=== PATIENT | female | born 1940 | race Caucasian/White ===

== ENCOUNTER 2017-05-14 15:24 | Inpatient (IN) | payer MEDICAID ==
[~2017-05-14] VITALS: Ht 157.5 cm; Wt 76.3 kg
[2017-05-14 16:30] LABS: BASOPHIL % 0.7 % (0-2); PLATELET COUNT 161 x10^3mcL (130-400)
[2017-05-14 16:38] LABS: RED CELL DISTRIBUTION WIDTH 16.9 % (11.5-14.5)
[2017-05-14 16:50] LABS: microscopic required? NO
[2017-05-14 16:51] LABS: ALKALINE PHOSPHATASE 268 U/L (46-116); ALT/SGPT 34 U/L (14-59); AMYLASE 56 U/L (25-115); AST/SGOT 88 U/L (15-37); BILIRUBIN TOTAL 3.36 mg/dL (0.20-1.00); CALCIUM 8.5 mg/dL (8.5-10.1); CARBON DIOXIDE 24.1 mmol/L (21-32); CHLORIDE SERUM 110 mmol/L (98-107); CHOLESTEROL 160 mg/dL (<200); CREATININE SERUM 1.1 mg/dL (0.6-1.0); GLUCOSE SERUM 147 mg/dL (74-106); LIPASE 305 IU/L (73-393); POTASSIUM SERUM 3.7 mmol/L (3.5-5.1); SODIUM SERUM 142 mmol/L (136-145); T4(THYROXINE) 7.4 ug/dL (4.7-13.3); TOTAL PROTEIN, SERUM 7.8 g/dL (6.4-8.2)
[2017-05-14 16:57] LABS: UA SPECIFIC GRAVITY 1.025 (1.005-1.035); urine erythrocyte NEGATIVE (NEGATIVE)
[2017-05-14 16:57] LABS: ALBUMIN 1.9 g/dL (3.4-5.0); HDL CHOLESTEROL 12 mg/dL (40-60)
[2017-05-14 17:11] LABS: AMPHETAMINE QUAL UR NONE DETECTED (NEG <=1000)
[2017-05-14] MEDS ORDERED: FUROSEMIDE40 MG PO (18:36)
[2017-05-14 18:38] VITALS: BP 134/70
[2017-05-14 19:22] LABS: CHOLESTEROL/HDL RATIO 12.2
[2017-05-14 19:27] LABS: T3 TOTAL 0.91 ng/mL
[2017-05-14 19:29] LABS: FREE T4 1.35 ng/dL (0.76-1.46); FREE THYROXINE INDEX 2.9 ug/dL (1.4-4.5); T4(THYROXINE) 8.6 ug/dL (4.7-13.3)
[2017-05-14 21:15] VITALS: BP 114/54
[2017-05-15 05:02] VITALS: BP 113/48
[2017-05-15 05:44] LABS: BASOPHIL % 0.6 % (0-2); PLATELET COUNT 145 x10^3mcL (130-400)
[2017-05-15 05:45] LABS: RED CELL DISTRIBUTION WIDTH 16.8 % (11.5-14.5)
[2017-05-15 06:10] LABS: CALCIUM 8.3 mg/dL (8.5-10.1); CARBON DIOXIDE 19.8 mmol/L (21-32); CHLORIDE SERUM 114 mmol/L (98-107); CREATININE SERUM 0.9 mg/dL (0.6-1.0); GLUCOSE SERUM 74 mg/dL (74-106); POTASSIUM SERUM 3.1 mmol/L (3.5-5.1); SODIUM SERUM 144 mmol/L (136-145)
[2017-05-15 12:32] VITALS: BP 96/53
[2017-05-15 16:37] VITALS: BP 133/101
[2017-05-15 21:59] VITALS: BP 108/45
[2017-05-16] VITALS (7 sets, daily range): BP systolic 86–127; BP diastolic 31–72
[2017-05-16 06:14] LABS: BASOPHIL % 0.6 % (0-2); PLATELET COUNT 156 x10^3mcL (130-400)
[2017-05-16 06:33] LABS: RED CELL DISTRIBUTION WIDTH 17.1 % (11.5-14.5)
[2017-05-16 06:34] LABS: CALCIUM 8.5 mg/dL (8.5-10.1); CARBON DIOXIDE 23.5 mmol/L (21-32); CHLORIDE SERUM 114 mmol/L (98-107); CREATININE SERUM 1.1 mg/dL (0.6-1.0); GLUCOSE SERUM 103 mg/dL (74-106); MAGNESIUM 1.9 mg/dL (1.8-2.4); PHOSPHOROUS 2.7 mg/dL (2.5-4.9); POTASSIUM SERUM 3.6 mmol/L (3.5-5.1); SODIUM SERUM 144 mmol/L (136-145)
[2017-05-16 19:56] LABS: APPEARANCE FLUID CLEAR; COLOR FLUID YELLOW; SOURCE FLUID ASCITES
[2017-05-16 19:57] LABS: RBC FLUID 1348 /cumm; WBC FLUID 10 /cumm
[2017-05-16 20:38] LABS: SOURCE FLUID ASCITES
[2017-05-17 05:58] VITALS: BP 97/36
[2017-05-17 06:25] VITALS: BP 98/57
[2017-05-17 06:56] LABS: BASOPHIL % 0.4 % (0-2); PLATELET COUNT 153 x10^3mcL (130-400); RED CELL DISTRIBUTION WIDTH 17.6 % (11.5-14.5)
[2017-05-17 06:58] LABS: CALCIUM 8.4 mg/dL (8.5-10.1); CARBON DIOXIDE 24.5 mmol/L (21-32); CHLORIDE SERUM 112 mmol/L (98-107); CREATININE SERUM 1.1 mg/dL (0.6-1.0); GLUCOSE SERUM 96 mg/dL (74-106); MAGNESIUM 1.9 mg/dL (1.8-2.4); PHOSPHOROUS 2.9 mg/dL (2.5-4.9); POTASSIUM SERUM 3.6 mmol/L (3.5-5.1); SODIUM SERUM 143 mmol/L (136-145)
[2017-05-17 10:00] VITALS: BP 95/32
[2017-05-17 15:49] VITALS: BP 108/36
[2017-05-17 15:55] VITALS: BP 107/45
[2017-05-17 21:40] VITALS: BP 110/47
[2017-05-18 06:07] VITALS: BP 112/46
[2017-05-18 06:29] LABS: BASOPHIL % 0.7 % (0-2); PLATELET COUNT 144 x10^3mcL (130-400)
[2017-05-18 06:36] LABS: RED CELL DISTRIBUTION WIDTH 16.7 % (11.5-14.5)
[2017-05-18 06:40] LABS: CARBON DIOXIDE 24.2 mmol/L (21-32); CHLORIDE SERUM 111 mmol/L (98-107); GLUCOSE SERUM 99 mg/dL (74-106); POTASSIUM SERUM 3.2 mmol/L (3.5-5.1); SODIUM SERUM 141 mmol/L (136-145)
[2017-05-18 09:50] VITALS: BP 118/56
[2017-05-18 14:45] VITALS: BP 114/53
[2017-05-18 16:24] VITALS: BP 120/61
[2017-05-18 21:10] VITALS: BP 113/56
[2017-05-19 04:52] VITALS: BP 100/37
[2017-05-19 04:56] VITALS: BP 113/53
[2017-05-19 04:57] VITALS: BP 118/60
[2017-05-19 06:25] LABS: CALCIUM 8.1 mg/dL (8.5-10.1); CARBON DIOXIDE 22.2 mmol/L (21-32); CHLORIDE SERUM 110 mmol/L (98-107); GLUCOSE SERUM 86 mg/dL (74-106); SODIUM SERUM 140 mmol/L (136-145)
[2017-05-19 06:43] LABS: BASOPHIL % 0.8 % (0-2); PLATELET COUNT 152 x10^3mcL (130-400)
[2017-05-19 06:56] LABS: RED CELL DISTRIBUTION WIDTH 16.9 % (11.5-14.5)
[2017-05-19 08:58] VITALS: BP 118/52
[2017-05-19] MEDS ORDERED: MECLIZINE HYD12.5 MG PO (10:53)
[2017-05-19] MEDS ORDERED: LAC30L PO (10:59)
[2017-05-19 11:37] VITALS: BP 118/52
== END 2017-05-19 12:30 | disposition home health service (06) ==
LOC: ED 15:24 → DU 17:44
PROVIDERS: Emergency Medicine; Family Medicine; Internal Medicine Gastroenterology; ADMIT Family Medicine
PROC: 0W9G3ZZ Drainage of Peritoneal Cavity, Percutaneous Approach (ICD-10-PCS; 2017-05-16)
PROC: 0DB68ZX Excision of Stomach, Via Natural or Artificial Opening Endoscopic, Diagnostic (ICD-10-PCS; principal; 2017-05-18 13:30)
DX: K74.69 Other cirrhosis of liver (principal); E43 Unspecified severe protein-calorie malnutrition; K72.90 Hepatic failure, unspecified without coma; K76.6 Portal hypertension; E87.8 Other disorders of electrolyte and fluid balance, not elsewhere classified; R18.8 Other ascites; D53.9 Nutritional anemia, unspecified; K31.89 Other diseases of stomach and duodenum; K29.40 Chronic atrophic gastritis without bleeding; K42.9 Umbilical hernia without obstruction or gangrene; I10 Essential (primary) hypertension; E78.5 Hyperlipidemia, unspecified; R74.0 Nonspecific elevation of levels of transaminase and lactic acid dehydrogenase [LDH]; E87.6 Hypokalemia; Z68.30 Body mass index [BMI] 30.0-30.9, adult; Z87.891 Personal history of nicotine dependence
CPT/HCPCS: 43235; 82962; 83880; 84439; 88344; 97110-GP; 97116-GP; 97530-GP; G0480; J1170; J1200; J1610; J1940; J2250; J2310; J3010; J3490; J7030; J8597; Q0092; Q9967

== ENCOUNTER 2017-06-13 15:40 | Inpatient (IN) | payer OTHER ==
[~2017-06-13] VITALS: Ht 157.5 cm; Wt 79.0 kg
[~2017-06-13 15:40] MED LIST: FUROSEMIDE40 MG PO; LAC30L PO; MECLIZINE HYD12.5 MG PO
[2017-06-13 16:57] LABS: BASOPHIL % 0.7 % (0-2); PLATELET COUNT 215 x10^3mcL (130-400)
[2017-06-13 16:59] LABS: RED CELL DISTRIBUTION WIDTH 16.6 % (11.5-14.5)
[2017-06-13 17:17] LABS: ALKALINE PHOSPHATASE 249 U/L (46-116); ALT/SGPT 35 U/L (14-59); AST/SGOT 78 U/L (15-37); BILIRUBIN TOTAL 3.6 mg/dL (0.20-1.00); CALCIUM 8.5 mg/dL (8.5-10.1); CREATININE SERUM 0.9 mg/dL (0.6-1.0); GLUCOSE SERUM 151 mg/dL (74-106)
[2017-06-13 17:23] LABS: ALBUMIN 2.1 g/dL (3.4-5.0); CARBON DIOXIDE 21.4 mmol/L (21-32); CHLORIDE SERUM 107 mmol/L (98-107); POTASSIUM SERUM 3.5 mmol/L (3.5-5.1); SODIUM SERUM 139 mmol/L (136-145); TOTAL PROTEIN, SERUM 8.4 g/dL (6.4-8.2)
[2017-06-13] MEDS ORDERED: SPIRONOLACTONE100 MG PO (20:32)
[2017-06-13 22:23] VITALS: BP 159/59
[2017-06-13 22:25] VITALS: Ht 157.5 cm; Wt 79.0 kg
[2017-06-13 23:15] VITALS: BP 159/59
[2017-06-14] VITALS (8 sets, daily range): BP systolic 90–113; BP diastolic 33–80
[2017-06-14 02:37] LABS: microscopic required? NO
[2017-06-14 04:00] LABS: urine erythrocyte NEGATIVE (NEGATIVE)
[2017-06-14 04:21] LABS: AMPHETAMINE QUAL UR NONE DETECTED (NEG <=1000)
[2017-06-14 07:08] LABS: CHOLESTEROL/HDL RATIO 8.4; MAGNESIUM 2.1 mg/dL (1.8-2.4)
[2017-06-14 07:25] LABS: BASOPHIL % 0.5 % (0-2); PLATELET COUNT 237 x10^3mcL (130-400)
[2017-06-14 07:26] LABS: RED CELL DISTRIBUTION WIDTH 16.6 % (11.5-14.5)
[2017-06-14 07:39] LABS: CALCIUM 8.5 mg/dL (8.5-10.1); CARBON DIOXIDE 22.3 mmol/L (21-32); CHLORIDE SERUM 108 mmol/L (98-107); CREATININE SERUM 0.9 mg/dL (0.6-1.0); GLUCOSE SERUM 128 mg/dL (74-106); POTASSIUM SERUM 3.7 mmol/L (3.5-5.1); SODIUM SERUM 141 mmol/L (136-145)
[2017-06-14 07:42] LABS: FREE T4 1.34 ng/dL (0.76-1.46); FREE THYROXINE INDEX 2.4 ug/dL (1.4-4.5); T4(THYROXINE) 7.3 ug/dL (4.7-13.3)
[2017-06-14 08:08] LABS: T3 TOTAL 0.8 ng/mL
[2017-06-14 18:00] LABS: SOURCE FLUID THORACENTESIS
[2017-06-14 18:01] LABS: APPEARANCE FLUID HAZY; COLOR FLUID YELLOW
[2017-06-14 18:02] LABS: RBC FLUID 190 /cumm; WBC FLUID 202 /cumm
[2017-06-14 18:03] LABS: LYMPHOCYTE FLUID 62 %; MONOCYTE FLUID 3 %
[2017-06-14 18:08] LABS: TOTAL PROTEIN, SERUM 7.6 g/dL (6.4-8.2)
[2017-06-15] VITALS (12 sets, daily range): BP systolic 83–121; BP diastolic 33–52
[2017-06-15 06:44] LABS: BASOPHIL % 0.3 % (0-2); PLATELET COUNT 228 x10^3mcL (130-400)
[2017-06-15 06:59] LABS: RED CELL DISTRIBUTION WIDTH 16.8 % (11.5-14.5)
[2017-06-15 07:26] LABS: CALCIUM 8.2 mg/dL (8.5-10.1); CARBON DIOXIDE 23.2 mmol/L (21-32); CHLORIDE SERUM 109 mmol/L (98-107); CREATININE SERUM 1.1 mg/dL (0.6-1.0); GLUCOSE SERUM 122 mg/dL (74-106); POTASSIUM SERUM 3.7 mmol/L (3.5-5.1); SODIUM SERUM 141 mmol/L (136-145)
[2017-06-15 19:34] LABS: APPEARANCE FLUID TURBID; SOURCE FLUID THORACENTESIS
[2017-06-15 19:38] LABS: COLOR FLUID YELLOW
[2017-06-15 19:39] LABS: LYMPHOCYTE FLUID 48 %; MONOCYTE FLUID 25 %; RBC FLUID 2289 /cumm; WBC FLUID 330 /cumm
[2017-06-16 05:49] VITALS: BP 96/50
[2017-06-16 07:32] LABS: CALCIUM 8.2 mg/dL (8.5-10.1); CARBON DIOXIDE 23.3 mmol/L (21-32); CHLORIDE SERUM 110 mmol/L (98-107); CREATININE SERUM 1.2 mg/dL (0.6-1.0); GLUCOSE SERUM 98 mg/dL (74-106); POTASSIUM SERUM 3.9 mmol/L (3.5-5.1); SODIUM SERUM 139 mmol/L (136-145)
[2017-06-16 07:52] LABS: BASOPHIL % 0.3 % (0-2); PLATELET COUNT 156 x10^3mcL (130-400)
[2017-06-16 07:54] LABS: RED CELL DISTRIBUTION WIDTH 16.4 % (11.5-14.5)
[2017-06-16 08:10] VITALS: BP 106/49
[2017-06-16 08:38] VITALS: BP 115/50
[2017-06-16 12:09] VITALS: BP 107/64
[2017-06-16 17:59] VITALS: BP 116/43
[2017-06-17 05:11] VITALS: BP 110/46
[2017-06-17 07:47] LABS: BASOPHIL % 0.2 % (0-2); PLATELET COUNT 173 x10^3mcL (130-400)
[2017-06-17 08:02] LABS: RED CELL DISTRIBUTION WIDTH 15.9 % (11.5-14.5)
[2017-06-17 08:08] LABS: CALCIUM 8.1 mg/dL (8.5-10.1); CARBON DIOXIDE 25.3 mmol/L (21-32); CHLORIDE SERUM 107 mmol/L (98-107); CREATININE SERUM 1.3 mg/dL (0.6-1.0); GLUCOSE SERUM 104 mg/dL (74-106); SODIUM SERUM 139 mmol/L (136-145)
[2017-06-17 10:06] VITALS: BP 114/37
[2017-06-17 11:58] VITALS: BP 103/42
[2017-06-17 17:02] VITALS: BP 79/55
[2017-06-17 18:22] VITALS: BP 71/53
== END 2017-06-17 22:54 | disposition expired | DRG 143 ==
LOC: ED 15:40 → DU 20:07 → IC 06-17 17:03 → DU 06-17 18:05 → IC 06-17 18:18
PROVIDERS: Emergency Medicine; Family Medicine
PROC: 0W993ZZ Drainage of Right Pleural Cavity, Percutaneous Approach (ICD-10-PCS; principal; 2017-06-14)
PROC: 0W9B3ZZ Drainage of Left Pleural Cavity, Percutaneous Approach (ICD-10-PCS; 2017-06-15)
DX: J90 Pleural effusion, not elsewhere classified (principal); J96.00 Acute respiratory failure, unspecified whether with hypoxia or hypercapnia; E43 Unspecified severe protein-calorie malnutrition; K76.6 Portal hypertension; D53.9 Nutritional anemia, unspecified; K74.60 Unspecified cirrhosis of liver; M94.0 Chondrocostal junction syndrome [Tietze]; K80.20 Calculus of gallbladder without cholecystitis without obstruction; K42.9 Umbilical hernia without obstruction or gangrene; Z66 Do not resuscitate; Z51.5 Encounter for palliative care; E02 Subclinical iodine-deficiency hypothyroidism; K31.89 Other diseases of stomach and duodenum; Z68.31 Body mass index [BMI] 31.0-31.9, adult; Z87.891 Personal history of nicotine dependence
CPT/HCPCS: 32555; 36600; 82947; 82962; 83880; 84439; 94150; 97110-GP; 97530-GP; C1729; J0696; J1940; J1956; J2270; J2370; J3490; J7030; J7050; J7613; J7620; J7626; J7644; P9045; Q0092